=== PATIENT | male | born 1975 | race Hispanic/Latino ===

== ENCOUNTER 2022-10-23 16:45 | Inpatient (IN) | payer BC ==
[~2022-10-23] VITALS: Ht 177.8 cm; Wt 123.4 kg
[2022-10-23] VITALS (9 sets, daily range): BP systolic 97–118; BP diastolic 47–75
[2022-10-23] MEDS ORDERED: SODIUM CHLORIDE 0.9% 1000ML 1,000 ML IV STA (17:23)
[2022-10-23 17:43] LABS: BASOPHILS % 0.3 % (0.0-1.0); HEMATOCRIT 50.1 % (38.2-49.6); HEMOGLOBIN 16.5 g/dL (14.0-18.0); LYMPHOCYTES # (AUTO) 0.7 (1.0-3.2); LYMPHOCYTES % 9.5 % (18.0-39.1); MEAN CORPUSCULAR HEMOGLOBIN 29.6 pg (28-32); MEAN CORPUSCULAR HGB CONC 32.9 g/dL (31-35); MEAN CORPUSCULAR VOLUME 89.8 fL (81-99); MONOCYTES # (AUTO) 0.3 (0.2-0.8); MONOCYTES % 3.9 % (4.4-11.3); NEUTROPHILS # (AUTO) 5.9 (2.1-6.9); NEUTROPHILS % 85.9 % (38.7-80.0); PLATELET COUNT 251 x10e3/uL (140-360); RED BLOOD COUNT 5.58 x10e6/uL (4.3-5.7); RED CELL DISTRIBUTION WIDTH 14.1 % (11.7-14.4)
[2022-10-23] MEDS ORDERED: ATORVASTATIN CA40 MG PO (17:47)
[2022-10-23] MEDS ORDERED: XIGDUO XR 10 M1 EAC1 PO (17:47)
[2022-10-23] MEDS ORDERED: METOPROLOL SUCC50 MG PO (17:47)
[2022-10-23] MEDS ORDERED: LEVOTHYROXINE137 MCG PO (17:47)
[2022-10-23 17:56] LABS: INR 1.12; PARTIAL THROMBOPLASTIN TIME 26.6 seconds (23.8-35.5); PROTHROMBIN TIME 14.6 seconds (11.9-14.5)
[2022-10-23] MEDS ORDERED: AMLODIPINE-BEN1 EAC4 PO (17:56)
[2022-10-23] MEDS ORDERED: RYBELSUS14 MG PO (17:56)
[2022-10-23 18:05] LABS: ALBUMIN 4.4 g/dL (3.5-5.0); ALBUMIN/GLOBULIN RATIO 1.1 (0.8-2.0); ANION GAP 30.1 mmol/L (8-16); CALCIUM 9.5 mg/dL (8.4-10.2); CREATININE, SERUM 1.58 mg/dL (0.72-1.25); MAGNESIUM 1.9 MG/DL (1.3-2.1); POTASSIUM 4.1 mmol/L (3.5-5.1)
[2022-10-23] MEDS ORDERED: ONDANSETRON HCL INJ 2MG/ML 2ML 2 MG/ML VIAL IV STA (18:07)
[2022-10-23 18:10] LABS: B-TYPE NATRIURETIC PEPTIDE2 < 5.0 pg/mL (0-100)
[2022-10-23 18:11] LABS: CREATINE KINASE MB 3.1 ng/mL (0-5.0)
[2022-10-23] MEDS ORDERED: INSULIN REGULAR, HUMAN 3ML VL 100 UNIT in SODIUM CHLORIDE 0.9% 99 ML IV SCH ×2 (18:30)
[2022-10-23] MEDS ORDERED: POTASSIUM CHLORIDE 20MEQ/100ML 200 ML IV PRN (18:30)
[2022-10-23] MEDS ORDERED: MAGNESIUM SULF 1GRAM/DEXTROSE 100 ML IV PRN (18:30)
[2022-10-23] MEDS ORDERED: SODIUM CHLORIDE 0.9% 1000ML 1,000 ML IV SCH (18:30)
[2022-10-23] MEDS ORDERED: ONDANSETRON HCL INJ 2MG/ML 2ML 2 MG/ML VIAL IV PRN (18:45)
[2022-10-23] MEDS ORDERED: Morphine 4mg INJECTION 4 MG/ML INJ IV PRN (18:45)
[2022-10-23] MEDS: DEXTROSE 5%/0.45% SOD CHL 1,000 ML IV SCH (19:00)
[2022-10-23] MEDS ORDERED: LABETALOL HCL 5 MG/ML 20ML VIAL IV STA (19:17)
[2022-10-23 19:19] LABS: ABG HCO3 8 mmol/L (22-26); ABG PCO2 21 mmHg (35-45); ABG PH 7.19 (7.35-7.45); ABG PO2 113 mmHg (80-105); ABG TCO2 9
[2022-10-23 19:33] LABS: SALICYLATE < 5.0 mg/dL (0-30)
[2022-10-23] MEDS ORDERED: ACETAMINOPHEN 325 MG TAB PO PRN ×2 (20:15→23:15)
[2022-10-23] MEDS ORDERED: ALBUTEROL/IPRATROPIUM 3 ML NEB NEB PRN ×2 (20:15→23:15)
[2022-10-23] MEDS ORDERED: GUAIFENESIN/DEXTROMETHORPHAN LIQD 5 ML UDC PO PRN (20:15)
[2022-10-23] MEDS ORDERED: MELATONIN 3 MG TAB PO PRN (20:15)
[2022-10-23] MEDS ORDERED: DOCUSATE SODIUM 100 MG CAP PO PRN ×2 (20:15→23:15)
[2022-10-23 21:02] LABS: FREE THYROXINE INDEX 2.8299 (1.4-3.8); THYROID STIMULATING HORMONE 0.168 uIU/mL (0.350-4.940)
[2022-10-23 22:18] LABS: ANION GAP 21.9 mmol/L (8-16); CALCIUM 8.2 mg/dL (8.4-10.2); CREATININE, SERUM 1.19 mg/dL (0.72-1.25); MAGNESIUM 1.7 MG/DL (1.3-2.1); POTASSIUM 3.9 mmol/L (3.5-5.1)
[2022-10-23] MEDS ORDERED: Morphine 2mg Syringe 2 MG/ML SYR IV PRN (22:45)
[2022-10-23] MEDS ORDERED: DEXTROSE 50% SYRINGE 50 ML IV PRN (23:15)
[2022-10-23] MEDS ORDERED: HYDRALAZINE HCL 20 MG/ML VIAL IV PRN (23:15)
[2022-10-23] MEDS ORDERED: LIDOCAINE 4% PATCH TP PRN (23:15)
[2022-10-23] MEDS ORDERED: SIMETHICONE 80 MG CHEW PO PRN (23:15)
[2022-10-23] MEDS ORDERED: MELATONIN 5 MG TABLET PO PRN (23:15)
[2022-10-23] MEDS ORDERED: BENZONATATE 100 MG CAP PO PRN (23:15)
[2022-10-24] VITALS (23 sets, daily range): BP systolic 93–166; BP diastolic 5–103
[2022-10-24] MEDS: DEXTROSE 5%/0.45% SOD CHL 1,000 ML IV SCH ×3 (02:00→22:41)
[2022-10-24 03:16] LABS: ANION GAP 19.6 mmol/L (8-16); CALCIUM 8.3 mg/dL (8.4-10.2); CREATININE, SERUM 1.17 mg/dL (0.72-1.25); MAGNESIUM 1.8 MG/DL (1.3-2.1); POTASSIUM 3.6 mmol/L (3.5-5.1)
[2022-10-24 06:29] LABS: AMPHETAMINES SCREEN,URINE NEGATIVE (NEGATIVE); BENZODIAZEPINES SCREEN,URINE NEGATIVE (NEGATIVE); PHENCYCLIDINE SCREEN,URINE NEGATIVE (NEGATIVE)
[2022-10-24 06:32] LABS: CLARITY,URINE CLEAR (CLEAR); COLOR,URINE YELLOW (YELLOW); KETONES,URINE >=160 (NEGATIVE); LEUKOCYTE ESTERASE ,URINE NEGATIVE (NEGATIVE); NITRITE,URINE NEGATIVE (NEGATIVE); PROTEIN,URINE DIPSTICK 1+ (NEGATIVE); URINE UROBILINOGEN 0.2 mg/dL (0.2 - 1)
[2022-10-24 06:43] LABS: BASOPHILS % 0.3 % (0.0-1.0); EOSINOPHILS % 0.5 % (0.0-6.0); HEMATOCRIT 43.4 % (38.2-49.6); HEMOGLOBIN 14.5 g/dL (14.0-18.0); LYMPHOCYTES # (AUTO) 1.9 (1.0-3.2); LYMPHOCYTES % 29.1 % (18.0-39.1); MEAN CORPUSCULAR HEMOGLOBIN 29.7 pg (28-32); MEAN CORPUSCULAR HGB CONC 33.4 g/dL (31-35); MEAN CORPUSCULAR VOLUME 88.8 fL (81-99); MONOCYTES # (AUTO) 0.8 (0.2-0.8); MONOCYTES % 12.5 % (4.4-11.3); NEUTROPHILS # (AUTO) 3.7 (2.1-6.9); NEUTROPHILS % 57.3 % (38.7-80.0); PLATELET COUNT 209 x10e3/uL (140-360); RED BLOOD COUNT 4.89 x10e6/uL (4.3-5.7); RED CELL DISTRIBUTION WIDTH 13.8 % (11.7-14.4)
[2022-10-24 07:00] LABS: RBC,URINE 0-5 /HPF (0-5); WBC,URINE (MAN) 0-5 /HPF (0-5)
[2022-10-24 07:01] LABS: BACTERIA,URINE RARE /HPF; EPITHELIAL CELLS,URINE RARE /LPF
[2022-10-24 07:04] LABS: CHOL/HDL RATIO 4.7 (3.9-4.7); MAGNESIUM 1.7 MG/DL (1.3-2.1)
[2022-10-24 07:20] LABS: ANION GAP 16.5 mmol/L (8-16); CALCIUM 8.6 mg/dL (8.4-10.2); CREATININE, SERUM 1.11 mg/dL (0.72-1.25); MAGNESIUM 1.8 MG/DL (1.3-2.1); POTASSIUM 3.5 mmol/L (3.5-5.1)
[2022-10-24 07:24] LABS: THYROID STIMULATING HORMONE 0.201 uIU/mL (0.350-4.940)
[2022-10-24] MEDS: MULTIVITAMINS/MINERALS TAB PO SCH (07:27)
[2022-10-24] MEDS: PANTOPRAZOLE SOD 40 MG TABEC PO SCH (07:27)
[2022-10-24] MEDS: MUPIROCIN 2% OINT 22 GM TUBE TOP SCH ×2 (07:28→21:00)
[2022-10-24 11:17] LABS: ANION GAP 17.4 mmol/L (8-16); BLOOD UREA NITROGEN < 5 mg/dL (7-26); BUN/CREATININE RATIO 5 (6-25); CALCIUM 8.5 mg/dL (8.4-10.2); CARBON DIOXIDE 16 mmol/L (22-29); CHLORIDE 113 mmol/L (98-107); CREATININE, SERUM 1.03 mg/dL (0.72-1.25); GLUCOSE 137 mg/dL (74-118); MAGNESIUM 1.7 MG/DL (1.3-2.1); POTASSIUM 3.4 mmol/L (3.5-5.1); SODIUM 143 mmol/L (136-145)
[2022-10-24 15:07] LABS: ANION GAP 18.2 mmol/L (8-16); BLOOD UREA NITROGEN < 5 mg/dL (7-26); CALCIUM 8.6 mg/dL (8.4-10.2); CARBON DIOXIDE 15 mmol/L (22-29); CHLORIDE 111 mmol/L (98-107); CREATININE, SERUM 1.02 mg/dL (0.72-1.25); GLUCOSE 147 mg/dL (74-118); MAGNESIUM 1.6 MG/DL (1.3-2.1); POTASSIUM 3.2 mmol/L (3.5-5.1); SODIUM 141 mmol/L (136-145)
[2022-10-24 15:13] LABS: BUN/CREATININE RATIO 5 (6-25)
[2022-10-24] MEDS ORDERED: DEXTROSE 50% SYRINGE 50 ML IV PRN (15:30)
[2022-10-24] MEDS ORDERED: INSULIN REGULAR, HUMAN 3ML VL 100 UNIT in SODIUM CHLORIDE 0.9% 100 ML IV SCH ×2 (15:30)
[2022-10-24] MEDS ORDERED: ENOXAPARIN SOD INJ 40 MG/0.4 ML SYR SC SCH (17:00)
[2022-10-24] MEDS: ENOXAPARIN SOD INJ 40 MG/0.4 ML SYR SC SCH (17:29)
[2022-10-24] MEDS: ONDANSETRON HCL INJ 2MG/ML 2ML 2 MG/ML VIAL IV PRN (18:16)
[2022-10-24] MEDS ORDERED: INSULIN GLARGINE 100 UNITS/ML VIAL SQ SCH (21:00)
[2022-10-25] VITALS (27 sets, daily range): BP systolic 100–183; BP diastolic 70–107
[2022-10-25 04:58] LABS: BASOPHILS % 0.2 % (0.0-1.0); EOSINOPHILS % 0.2 % (0.0-6.0); HEMOGLOBIN 13.5 g/dL (14.0-18.0); LYMPHOCYTES # (AUTO) 1.9 (1.0-3.2); LYMPHOCYTES % 22.8 % (18.0-39.1); MEAN CORPUSCULAR HEMOGLOBIN 29.4 pg (28-32); MEAN CORPUSCULAR HGB CONC 33.8 g/dL (31-35); MEAN CORPUSCULAR VOLUME 87.1 fL (81-99); MONOCYTES # (AUTO) 0.7 (0.2-0.8); MONOCYTES % 7.7 % (4.4-11.3); NEUTROPHILS # (AUTO) 5.9 (2.1-6.9); NEUTROPHILS % 68.9 % (38.7-80.0); PLATELET COUNT 186 x10e3/uL (140-360); RED BLOOD COUNT 4.59 x10e6/uL (4.3-5.7); RED CELL DISTRIBUTION WIDTH 13.5 % (11.7-14.4)
[2022-10-25 05:16] LABS: ANION GAP 14.7 mmol/L (8-16); BLOOD UREA NITROGEN < 5 mg/dL (7-26); CALCIUM 8.6 mg/dL (8.4-10.2); CARBON DIOXIDE 20 mmol/L (22-29); CHLORIDE 109 mmol/L (98-107); CREATININE, SERUM 0.91 mg/dL (0.72-1.25); GLUCOSE 142 mg/dL (74-118); SODIUM 141 mmol/L (136-145)
[2022-10-25 05:30] LABS: BUN/CREATININE RATIO 5 (6-25); POTASSIUM 2.7 mmol/L (3.5-5.1)
[2022-10-25] MEDS ORDERED: D5/.45NS KCL 40MEQ **PREMIX BAG 1000ML IV SCH (05:45)
[2022-10-25] MEDS ORDERED: POTASSIUM CHLORIDE 20MEQ/100ML 200 ML IV ONE (05:45)
[2022-10-25] MEDS: ONDANSETRON HCL INJ 2MG/ML 2ML 2 MG/ML VIAL IV PRN ×2 (05:56→23:21)
[2022-10-25] MEDS ORDERED: D5/.45NS KCL 40MEQ 1,000 ML IV SCH (06:00)
[2022-10-25] MEDS: POTASSIUM CHL 40 MEQ in DEXTROSE 5%/0.45% SOD CHL 1,000 ML IV SCH ×2 (07:01→15:03)
[2022-10-25] MEDS: PANTOPRAZOLE SOD 40 MG TABEC PO SCH (08:18)
[2022-10-25] MEDS: MULTIVITAMINS/MINERALS TAB PO SCH (08:18)
[2022-10-25] MEDS: MUPIROCIN 2% OINT 22 GM TUBE TOP SCH ×2 (08:18→21:00)
[2022-10-25] MEDS: DIPHENHYDRAMINE HCL 25 MG CAP PO PRN (08:50)
[2022-10-25] MEDS ORDERED: NON-FORMULARY MEDICATION (Levothyroxine Sodium 1 TAB) PO SCH (09:00)
[2022-10-25] MEDS: MAGNESIUM/ALUMINUM/SIMETHICONE 30 ML UDC PO PRN ×2 (13:53→19:23)
[2022-10-25] MEDS: SUCRALFATE 1 GM/10 ML SUSP NG SCH ×2 (15:01→20:52)
[2022-10-25] MEDS: INSULIN LISPRO 100 UNIT/1 ML 3ML VIAL SQ SCH ×2 (15:01→21:00)
[2022-10-25] MEDS: ENOXAPARIN SOD INJ 40 MG/0.4 ML SYR SC SCH (17:31)
[2022-10-25] MEDS: HYDRALAZINE HCL 20 MG/ML VIAL IV PRN (20:53)
[2022-10-25] MEDS: INSULIN GLARGINE 100 UNITS/ML VIAL SQ SCH (20:56)
[2022-10-26] VITALS (26 sets, daily range): BP systolic 110–181; BP diastolic 72–108
[2022-10-26] MEDS: POTASSIUM CHL 40 MEQ in DEXTROSE 5%/0.45% SOD CHL 1,000 ML IV SCH ×4 (01:58→22:43)
[2022-10-26] MEDS: HYDRALAZINE HCL 20 MG/ML VIAL IV PRN ×2 (05:23→18:42)
[2022-10-26] MEDS: MAGNESIUM/ALUMINUM/SIMETHICONE 30 ML UDC PO PRN (06:30)
[2022-10-26] MEDS: INSULIN LISPRO 100 UNIT/1 ML 3ML VIAL SQ SCH ×4 (08:12→20:43)
[2022-10-26] MEDS: ONDANSETRON HCL INJ 2MG/ML 2ML 2 MG/ML VIAL IV PRN (08:12)
[2022-10-26] MEDS: MULTIVITAMINS/MINERALS TAB PO SCH (08:12)
[2022-10-26] MEDS: DIPHENHYDRAMINE HCL 25 MG CAP PO PRN (08:12)
[2022-10-26] MEDS: SUCRALFATE 1 GM/10 ML SUSP NG SCH ×4 (08:12→20:40)
[2022-10-26] MEDS: PANTOPRAZOLE SOD 40 MG TABEC PO SCH (08:12)
[2022-10-26] MEDS: MUPIROCIN 2% OINT 22 GM TUBE TOP SCH ×2 (08:13→20:40)
[2022-10-26 08:51] LABS: CALCIUM 8.6 mg/dL (8.4-10.2); CARBON DIOXIDE 22 mmol/L (22-29); CHLORIDE 106 mmol/L (98-107); CREATININE, SERUM 0.82 mg/dL (0.72-1.25); GLUCOSE 157 mg/dL (74-118); MAGNESIUM 1.4 MG/DL (1.3-2.1); SODIUM 142 mmol/L (136-145)
[2022-10-26 08:59] LABS: BLOOD UREA NITROGEN < 2 mg/dL (7-26)
[2022-10-26] MEDS ORDERED: POTASSIUM CHLORIDE 20MEQ/100ML 200 ML IV PRN (10:30)
[2022-10-26] MEDS ORDERED: PROMETHAZINE 25MG/ NS 50ML (IV) IV ONE (10:30)
[2022-10-26] MEDS: DONNATAL/LIDOCAINE/MAALOX 30 ML SUSP PO PRN (12:54)
[2022-10-26] MEDS ORDERED: PROMETHAZINE 25MG/ NS 50ML (IV) IV PRN (14:00)
[2022-10-26] MEDS: ENOXAPARIN SOD INJ 40 MG/0.4 ML SYR SC SCH (16:47)
[2022-10-26] MEDS: INSULIN GLARGINE 100 UNITS/ML VIAL SQ SCH (20:43)
[2022-10-27] VITALS (21 sets, daily range): BP systolic 110–185; BP diastolic 72–107
[2022-10-27] MEDS: METOCLOPRAMIDE HCL 10 MG/2ML VIAL IV SCH ×4 (00:28→19:09)
[2022-10-27 04:45] LABS: BASOPHILS % 0.4 % (0.0-1.0); EOSINOPHILS % 0.4 % (0.0-6.0); HEMATOCRIT 38.8 % (38.2-49.6); HEMOGLOBIN 13.3 g/dL (14.0-18.0); LYMPHOCYTES # (AUTO) 1.7 (1.0-3.2); MEAN CORPUSCULAR HEMOGLOBIN 29.6 pg (28-32); MEAN CORPUSCULAR HGB CONC 34.3 g/dL (31-35); MEAN CORPUSCULAR VOLUME 86.4 fL (81-99); MONOCYTES # (AUTO) 0.6 (0.2-0.8); MONOCYTES % 10.7 % (4.4-11.3); NEUTROPHILS # (AUTO) 2.8 (2.1-6.9); NEUTROPHILS % 55.1 % (38.7-80.0); PLATELET COUNT 198 x10e3/uL (140-360); RED BLOOD COUNT 4.49 x10e6/uL (4.3-5.7); RED CELL DISTRIBUTION WIDTH 13.5 % (11.7-14.4)
[2022-10-27 05:02] LABS: ANION GAP 12.3 mmol/L (8-16); CARBON DIOXIDE 26 mmol/L (22-29); CHLORIDE 106 mmol/L (98-107); CREATININE, SERUM 0.74 mg/dL (0.72-1.25); GLUCOSE 359 mg/dL (74-118); POTASSIUM 5.3 mmol/L (3.5-5.1); SODIUM 139 mmol/L (136-145)
[2022-10-27 05:27] LABS: BLOOD UREA NITROGEN < 2 mg/dL (7-26)
[2022-10-27] MEDS: SUCRALFATE 1 GM/10 ML SUSP NG SCH ×4 (08:15→20:04)
[2022-10-27] MEDS: INSULIN LISPRO 100 UNIT/1 ML 3ML VIAL SQ SCH ×5 (08:27→20:35)
[2022-10-27] MEDS: POTASSIUM CHL 40 MEQ in DEXTROSE 5%/0.45% SOD CHL 1,000 ML IV SCH ×2 (09:20→09:22)
[2022-10-27] MEDS: MUPIROCIN 2% OINT 22 GM TUBE TOP SCH ×2 (09:23→21:53)
[2022-10-27] MEDS: MULTIVITAMINS/MINERALS TAB PO SCH (09:24)
[2022-10-27] MEDS: POTASSIUM CHLORIDE 20 MEQ TAB CR PO PRN (09:25)
[2022-10-27] MEDS: HYDRALAZINE HCL 20 MG/ML VIAL IV PRN ×2 (10:18→20:32)
[2022-10-27] MEDS: ONDANSETRON HCL INJ 2MG/ML 2ML 2 MG/ML VIAL IV PRN (10:19)
[2022-10-27] MEDS: DONNATAL/LIDOCAINE/MAALOX 30 ML SUSP PO PRN ×2 (12:03→16:36)
[2022-10-27] MEDS ORDERED: MAGNESIUM SULF 1GRAM/DEXTROSE 100 ML IV PRN (13:45)
[2022-10-27] MEDS ORDERED: INSULIN LISPRO 100 UNIT/1 ML 3ML VIAL SQ SCH (16:30)
[2022-10-27] MEDS: ENOXAPARIN SOD INJ 40 MG/0.4 ML SYR SC SCH (17:20)
[2022-10-27] MEDS: INSULIN GLARGINE 100 UNITS/ML VIAL SQ SCH (20:35)
[2022-10-27] MEDS ORDERED: INSULIN GLARGINE 100 UNITS/ML VIAL SQ SCH (21:00)
[2022-10-27] MEDS: LOSARTAN POTASSIUM 100 MG TAB PO SCH (22:03)
[2022-10-28] VITALS (14 sets, daily range): BP systolic 113–164; BP diastolic 76–107
[2022-10-28] MEDS: METOCLOPRAMIDE HCL 10 MG/2ML VIAL IV SCH ×5 (00:27→23:58)
[2022-10-28] MEDS: INSULIN LISPRO 100 UNIT/1 ML 3ML VIAL SQ SCH ×7 (07:30→20:53)
[2022-10-28] MEDS: SUCRALFATE 1 GM/10 ML SUSP NG SCH ×4 (07:34→20:51)
[2022-10-28] MEDS: MULTIVITAMINS/MINERALS TAB PO SCH (08:24)
[2022-10-28] MEDS: LOSARTAN POTASSIUM 100 MG TAB PO SCH (08:24)
[2022-10-28] MEDS: MUPIROCIN 2% OINT 22 GM TUBE TOP SCH ×2 (08:24→21:06)
[2022-10-28] MEDS: ENOXAPARIN SOD INJ 40 MG/0.4 ML SYR SC SCH (17:53)
[2022-10-28] MEDS: INSULIN GLARGINE 100 UNITS/ML VIAL SQ SCH (21:06)
[2022-10-29] VITALS (7 sets, daily range): BP systolic 124–154; BP diastolic 81–96
[2022-10-29 05:45] LABS: BASOPHILS % 0.3 % (0.0-1.0); EOSINOPHILS # (AUTO) 0.1 (0.0-0.4); EOSINOPHILS % 1.4 % (0.0-6.0); HEMATOCRIT 42.8 % (38.2-49.6); HEMOGLOBIN 14.3 g/dL (14.0-18.0); LYMPHOCYTES # (AUTO) 1.7 (1.0-3.2); LYMPHOCYTES % 25.5 % (18.0-39.1); MEAN CORPUSCULAR HEMOGLOBIN 29.5 pg (28-32); MEAN CORPUSCULAR HGB CONC 33.4 g/dL (31-35); MEAN CORPUSCULAR VOLUME 88.2 fL (81-99); MONOCYTES # (AUTO) 0.9 (0.2-0.8); MONOCYTES % 13.7 % (4.4-11.3); NEUTROPHILS # (AUTO) 3.9 (2.1-6.9); NEUTROPHILS % 58.8 % (38.7-80.0); PLATELET COUNT 205 x10e3/uL (140-360); RED BLOOD COUNT 4.85 x10e6/uL (4.3-5.7); RED CELL DISTRIBUTION WIDTH 13.8 % (11.7-14.4)
[2022-10-29 06:09] LABS: ANION GAP 10.9 mmol/L (8-16); CALCIUM 8.6 mg/dL (8.4-10.2); CREATININE, SERUM 1.26 mg/dL (0.72-1.25)
[2022-10-29] MEDS: METOCLOPRAMIDE HCL 10 MG/2ML VIAL IV SCH ×4 (06:22→23:26)
[2022-10-29 06:42] LABS: POTASSIUM 2.9 mmol/L (3.5-5.1)
[2022-10-29] MEDS: POTASSIUM CHLORIDE 20 MEQ TAB CR PO PRN (06:53)
[2022-10-29] MEDS: INSULIN LISPRO 100 UNIT/1 ML 3ML VIAL SQ SCH ×7 (07:30→20:51)
[2022-10-29] MEDS: SUCRALFATE 1 GM/10 ML SUSP NG SCH ×4 (08:12→20:52)
[2022-10-29] MEDS: MUPIROCIN 2% OINT 22 GM TUBE TOP SCH ×2 (09:00→20:53)
[2022-10-29] MEDS: MULTIVITAMINS/MINERALS TAB PO SCH (09:15)
[2022-10-29] MEDS: LOSARTAN POTASSIUM 100 MG TAB PO SCH (09:16)
[2022-10-29] MEDS: ENOXAPARIN SOD INJ 40 MG/0.4 ML SYR SC SCH (17:21)
[2022-10-29] MEDS: INSULIN GLARGINE 100 UNITS/ML VIAL SQ SCH (20:58)
[2022-10-30] VITALS (7 sets, daily range): BP systolic 124–154; BP diastolic 81–92
[2022-10-30] MEDS: METOCLOPRAMIDE HCL 10 MG/2ML VIAL IV SCH ×2 (06:34→14:40)
[2022-10-30] MEDS: INSULIN LISPRO 100 UNIT/1 ML 3ML VIAL SQ SCH ×6 (07:30→16:30)
[2022-10-30] MEDS: SUCRALFATE 1 GM/10 ML SUSP NG SCH ×2 (08:30→12:23)
[2022-10-30] MEDS: MUPIROCIN 2% OINT 22 GM TUBE TOP SCH (09:00)
[2022-10-30] MEDS: MULTIVITAMINS/MINERALS TAB PO SCH (09:50)
[2022-10-30] MEDS: LOSARTAN POTASSIUM 100 MG TAB PO SCH (09:51)
[2022-10-30] MEDS ORDERED: IPRATROPIUM BROMIDE 0.02% 2.5 ML NEB NEB PRN (17:00)
[2022-10-30] MEDS ORDERED: ALBUTEROL SULF 0.083% NEB SOLN 3 ML NEB NEB PRN (17:00)
== END 2022-10-30 18:38 | disposition home or self-care (01) | DRG 638 ==
LOC: ER 17:05 → ERHOLD 18:40 → ICU 21:07 → MED/SURG3 10-28 15:30
PROVIDERS: ADMIT Internal Medicine; ATTEND Internal Medicine
DX: E11.10 Type 2 diabetes mellitus with ketoacidosis without coma (principal); N17.9 Acute kidney failure, unspecified; E66.01 Morbid (severe) obesity due to excess calories; Z68.37 Body mass index [BMI] 37.0-37.9, adult; K82.8 Other specified diseases of gallbladder; K81.9 Cholecystitis, unspecified; Z20.822 Contact with and (suspected) exposure to COVID-19; R00.0 Tachycardia, unspecified; I10 Essential (primary) hypertension; E78.5 Hyperlipidemia, unspecified; E86.0 Dehydration; E07.9 Disorder of thyroid, unspecified; E03.9 Hypothyroidism, unspecified; K29.70 Gastritis, unspecified, without bleeding; Z87.891 Personal history of nicotine dependence
CPT/HCPCS: 0223U; 36415; 36600; 71045; 78227; 80048; 80053; 80061; 80307; 80320; 80329; 81001; 82550; 82553; 82805; 82948; 83036; 83605; 83690; 83735; 83880; 84132; 84436; 84443; 84478; 84479; 84484; 85025; 85610; 85730; 87040; 93005; 94799; 96372; 99252; 99284; A9537; J1650; J1815; J1817; J2405; J2550; J2765; J3475; J3480; J7030; J7050